=== PATIENT | male | born 1990 | race Caucasian/White ===

== ENCOUNTER 2018-10-18 15:41 | Emergency (ER) | payer BC, OTHER ==
[2018-10-18 15:45] VITALS: BP 126/81; TEMP 97.2; BMI 22.4
[2018-10-18] MEDS ORDERED: LIDOCAINE HCL 1% SDV SUBCUT STA (16:58)
--- NOTE | 2018-10-18 17:29 | ED.PDOC ---
General ED Provider: Dr. JOSE ANTONIO BONILLA Chief Complaint: Hand Laceration Stated Complaint: Cut my lt hand with a miter saw. Needs sutured Time Seen by Physician: 15:50 Mode of Arrival: Walk-In Information Source: Patient Exam Limitations: No limitations Primary Care Provider: ZION NEVILLE Nursing and Triage Documentation Reviewed and Agree: Yes Does patient meet sepsis criteria?: No System Inflammatory Response Syndrome: Not Applicable Sepsis Protocol: For patient's 13 years and over: Temp is 96.8 and below OR 101 and greater Pulse >90 BPM Resp >20/minute Acutely Altered Mental Status Are patient's symptoms suggestive of a new infection, such as: -Pneumonia -Skin, Soft Tissue -Endocarditis -UTI -Bone, Joint Infection -Implantable Device -Acute Abdominal Infection -Wound Infection -Meningitis -Blood Stream Catheter Infection -Unknown Skin Complaint Exam - Laceration/Abrasion/Hand Complaint/Exam Location of Injury: Left, Hand (distal 2nd metacarpal region) Mechanism of Injury: Laceration Onset/Duration: Today Symptoms Are: Still present Initial Severity: Mild Current Severity: Moderate Aggravating: Movement Alleviating: Compression Associated Signs and Symptoms: Denies: Fever, Chills, Erythema, Numbness, Tingling Related History: Reports: Right hand dominant Hand Picture: 1 - Site of laceration Differential Diagnoses: Laceration Review of Systems - Review Of Systems Constitutional: Reports: No symptoms Eyes: Reports: No symptoms Ears, Nose, Mouth, Throat: Reports: No symptoms Respiratory: Reports: No symptoms Cardiac: Reports: No symptoms GI: Reports: No symptoms : Reports: No symptoms Musculoskeletal: Reports: No symptoms Skin: Reports: No symptoms Neurological: Reports: No symptoms Endocrine: Reports: No symptoms Hematologic/Lymphatic: Reports: No symptoms All Other Systems: Reviewed and Negative Past Medical History - Past Medical History Previously Healthy: Yes Endocrine: Reports: None Cardiovascular: Reports: None Respiratory: Reports: None Hematological: Reports: None Gastrointestinal: Reports: None Genitourinary: Reports: None Neuro/Psych: Reports: None Musculoskeletal: Reports: None Cancer: Reports: None - Surgical History General Surgical History: Reports: None - Family History Family History: Reports: None - Social History Smoking Status: Never smoker Hx Substance Use: No Alcohol Screening: Occasionally - Immunizations Tetanus Shot up to Date: Yes (1 year ago) Physical Exam - Physical Exam Appearance: Well-appearing, No pain distress, Well-nourished Eyes: MAXIM, EOMI, Conjunctiva clear ENT: Ears normal, Nose normal, Oropharynx normal Respiratory: Airway patent, Breath sounds clear, Breath sounds equal, Respirations nonlabored Cardiovascular: RRR, Pulses normal, No rub, No murmur GI/: Soft, Nontender, No masses, Bowel sounds normal, No Organomegaly Musculoskeletal: Normal strength, ROM intact, No edema, No calf tenderness Skin: Warm (Laceration Lt hand dorsal aspect), Dry, Normal color Neurological: Sensation intact, Motor intact, Reflexes intact, Cranial nerves intact, Alert, Oriented Psychiatric: Affect appropriate, Mood appropriate Procedures - Laceration/Wound Repair LT HAND Wound Description: Linear Wound Length (cm): 2 cm Wound Width: 5 mm Wound Depth: superficial Wound Explored: Clean Wound Irrigated: Yes Wound Prep: Hibiclens, Betadine Wound Repaired With: Sutures Suture Size and Type: 4-0 Number of Sutures: 4 Layer Closure?: No Sterile Dressing Applied?: Yes Critical Care Note - Critical Care Note Total Time (mins): 0 Course - Course Vital Signs: Temp Pulse Resp BP Pulse Ox 10/18/18 15:42 97.2 F L 61 20 126/81 100 Departure - Departure Time of Disposition: 17:30 Disposition: HOME SELF-CARE Discharge Problem: Laceration of hand Instructions: Care For Your Stitches (ED), Laceration (ED) Condition: Good Pt referred to PMD for follow-up: Yes (1 week for suture removal- may return to ER) IPMP verified?: No Additional Instructions: Wound care Antibiotics as prescribed Ibuprofen 600 mg every 6 hrs for pain as needed for pain Allergies/Adverse Reactions: Allergies No Known Allergies Allergy (Unverified 10/18/18 15:45) Home Medications: Ambulatory Orders Cephalexin [Keflex] 500 mg PO BID #14 capsule 10/18/18 Disposition Discussed With: Patient
== END 2018-10-18 17:47 | disposition home or self-care (01) ==
LOC: ED 15:41
DX: S61.412A Laceration without foreign body of left hand, initial encounter (principal); W29.8XXA Contact with other powered hand tools and household machinery, initial encounter
CPT/HCPCS: 99283